=== PATIENT | female | born 1960 | race Caucasian/White ===

== ENCOUNTER 2020-08-12 06:56 | Emergency (ER) | payer BC, OTHER ==
[2020-08-12 07:50] LABS: HEMOGLOBIN 13.2 gm/dl (12.3-15.3); RED BLOOD COUNT 4.75 M/UL (4.00-5.10); WHITE BLOOD COUNT 14.8 K/UL (4.5-11.0)
[2020-08-12 08:21] LABS: BUN/CREATININE RATIO 10 (0-10)
[2020-08-12] MEDS ORDERED: HYDROCODON-ACE1 EAC3 PO (11:34)
[2020-08-12] MEDS ORDERED: FLOMAX 0.4 MG0.4 MG PO (11:34)
[2020-08-12] MEDS ORDERED: ZOFRAN ODT 4 MG4 MG PO (11:34)
[2020-08-12] MEDS ORDERED: TORADOL 10 MG T10 MG PO (11:34)
[2020-08-16] MEDS ORDERED: VITAMIN C1500 MG PO (11:57)
[2020-08-16] MEDS ORDERED: CALCIUM CARBON650 MG PO (11:58)
[2020-08-16] MEDS ORDERED: ASPIRIN CHEWABL81 MG PO (11:58)
[2020-08-16] MEDS ORDERED: [UNRECOGNIZED DRUG - OTHER] PO (12:01)
[2020-08-16] MEDS ORDERED: VITAMIN D350 MCG PO (12:02)
== END 2020-08-12 12:00 | disposition home or self-care (01) ==
LOC: ER1 06:56
PROVIDERS: Student in an Organized Health Care Education/Training Program
DX: N13.2 Hydronephrosis with renal and ureteral calculous obstruction (principal); Z88.2 Allergy status to sulfonamides
CPT/HCPCS: 80053; 81001; 82550; 82553; 83605; 83690; 83874; 84484; 85025; 93005; 96374; 96375; 99284; J1885; J2270; J2405; J7040; J7120; Q9967

== ENCOUNTER → 2020-08-14 | Outpatient (CLI) | payer BC, OTHER ==
[~2020-08-14] MED LIST: ASPIRIN CHEWABL81 MG PO; CALCIUM CARBON650 MG PO; FLOMAX 0.4 MG0.4 MG PO; HYDROCODON-ACE1 EAC3 PO; TORADOL 10 MG T10 MG PO; VITAMIN C1500 MG PO; VITAMIN D350 MCG PO; ZOFRAN ODT 4 MG4 MG PO; [UNRECOGNIZED DRUG - OTHER] PO
== END ==
LOC: RAD 16:37
DX: N20.1 Calculus of ureter (principal); K56.41 Fecal impaction
CPT/HCPCS: 74018

== ENCOUNTER → 2020-08-16 | Day surgery (SDC) | payer BC, OTHER ==
[~2020-08-16] VITALS: Ht 167.6 cm; Wt 68.0 kg
[2020-08-23 20:09] LABS: CA OXALATE DIHYDRATE 50 % (.); CALCIUM OXALATE MONOHYDRATE 50 % (.); COLOR Brown (.); SIZE 1x3 mm (.); WEIGHT 8 mg (.)
== END | disposition home or self-care (01) ==
LOC: OR 09:19
PROVIDERS: Urology
DX: N13.2 Hydronephrosis with renal and ureteral calculous obstruction (principal); U07.1 COVID-19; Z88.2 Allergy status to sulfonamides; Z79.82 Long term (current) use of aspirin; Z87.891 Personal history of nicotine dependence
CPT/HCPCS: 76000; 81001; 87635; C1769; C1894; C2617; J1100; J1885; J1956; J2001; J2250; J2405; J2704; J3010; J7120

== ENCOUNTER → 2020-09-06 | Outpatient (CLI) | payer BC, OTHER | LOC: RAD 16:19 | DX: N20.1 Calculus of ureter (principal); K56.41 Fecal impaction | CPT/HCPCS: 74018 ==